=== PATIENT | female | born 1940 | race Caucasian/White ===

== ENCOUNTER 2018-07-06 14:45 | Emergency (ER) | payer MEDICARE ==
[2018-07-06] MEDS ORDERED: ACETAMINOPHEN 325 MG TABLET PO ONE (15:30)
--- NOTE | 2018-07-06 15:32 | ER Document Report ---
ED Headache - General Chief Complaint: Headache >24 hrs old Stated Complaint: FALL/HEAD INJURY Time Seen by Provider: 07/06/18 15:25 Mode of Arrival: Ambulatory Information source: Patient Notes: History of Present Illness Chief Complaint: [head injury] [ ] History obtained from [patient] 78 years old female presents today with a fall at around this morning. When she was coming out of the shower slipped and fell. Sustained an injury to the right parietotemporal region, with the swelling. Currently has mild headache. Denies any loss of consciousness. Denies any neck pain neck stiffness, denies any pain over upper limbs or lower limbs. Denies any injuries or upper limbs or lower limbs. Denies any injury to the chest wall or abdomen. Symptoms began: [immediately prior to arrival] Onset: [sudden] Timing:[ constant] Quality: ["pain"] Intensity: [moderate] Mechanism:[ As above] Location: [ As above] Radiation: [none] Migration: [none] Aggravating factors: [none] Relieving factors: [none] Denies loss of consciousness Denies neck pain Denies numbness Denies weakness Denies change in vision Denies change in hearing Denies additional injuries Review of systems : All other systems negative as reviewed. CONSTITUTIONAL No Fever. EYES No eye pain. ENT No sore throat. CARDIOVASCULAR No chest pain. RESPIRATORY No SOB. GASTROINTESTINAL No abdominal pain, No rectal bleeding. GENITOURINARY No hematuria. MUSCULOSKELETAL No back pain. SKIN No rash. NEUROLOGIC No paralysis. HEMO/LYMPHATIC Patient does not bruise easily. Physical Exam CONSTITUTIONAL Vital signs reviewed, Comfortable, Alert and oriented X 3. HEAD [ ] Nontender, right occipitoparietal region, slight swelling noted which is erythematous and color., Normal cephalic. EYES No discharge from eye, Sclera are not injected, Extraocular muscles intact, Conjunctiva are normal. Pupils equal, round, reactive to light, 2mm bilaterally. ENT Ears normal to inspection, Nose examination normal, Oropharynx normal, Mucous membranes pink, moist, normal in color. NECK No focal bony tenderness, patient is cleared from spinal precautions by Nexus criteria, Normal ROM, trachea midline. RESPIRATORY/CHEST Chest is non-tender, Breath sounds normal, No respiratory distress. CARDIOVASCULAR RRR, Heart sounds normal. ABDOMEN Abdomen is non-tender, No masses, Bowel sounds normal, No distension, No peritoneal signs. BACK No focal bony tenderness, Normal inspection. UPPER EXTREMITY Inspection normal, no focal bony tenderness, no snuff box tenderness, FROM of bilateral shoulders, elbows, wrists, fingers x 5, NVI distally, No cyanosis/ clubbing/edema. LOWER EXTREMITY Inspection normal, no focal bony tenderness, FROM of bilateral hips, knees, ankles, toes x 5, NVI distally, bilateral knees stable without effusion No cyanosis/clubbing/edema, No calf tenderness. NEURO Cranial Nerves intact, Normal speech, Motor exam normal, Sensory exam normal. SKIN Skin is warm and dry, No rash. PSYCHIATRIC Normal affect. TRAVEL OUTSIDE OF THE [place] IN LAST 30 DAYS: No - HPI Notes: Dictated - Related Data Allergies/Adverse Reactions: No Known Allergies Allergy (Unverified 07/06/18 14:46) Past Medical History - Social History Smoking Status: Never Smoker Frequency of alcohol use: Rare Drug Abuse: None Lives with: Family Family History: Reviewed & Not Pertinent Review of Systems - Review of Systems Notes: Dictated Physical Exam - Vital signs Vitals: Temp Pulse Resp BP Pulse Ox 97.8 F 63 16 134/50 H 97 07/06/18 15:15 07/06/18 15:15 07/06/18 15:15 07/06/18 15:15 07/06/18 15:15 - Notes Notes: Dictated Course - Vital Signs Vital signs: Temp Pulse Resp BP Pulse Ox 97.8 F 63 16 134/50 H 97 07/06/18 15:15 07/06/18 15:15 07/06/18 15:15 07/06/18 15:15 07/06/18 15:15 - Diagnostic Test Radiology reviewed: Reports reviewed - CT of the head reported by radiologist as no acute bleeding Discharge - Discharge Clinical Impression: Head injury Qualifiers: Encounter type: initial encounter Qualified Code(s): S09.90XA - Unspecified injury of head, initial encounter Condition: Fair Disposition: HOME, SELF-CARE Instructions: Head Injury Precautions ([facility])
--- NOTE | 2018-07-06 16:06 | RADIOLOGY REPORT (SQ) ---
EXAM DESCRIPTION: CT HEAD WITHOUT COMPLETED DATE/TIME: 07/06/2018 3:52 pm REASON FOR STUDY: Fall and head injury COMPARISON: None. TECHNIQUE: Axial images acquired through the brain without intravenous contrast. Images reviewed wi th bone, brain and subdural windows. Additional sagittal and coronal reconstructions were generated. Images stored on PACS. All CT scanners at this facility use dose modulation, iterative reconstruction, and/or weight based d osing when appropriate to reduce radiation dose to as low as reasonably achievable (ALARA). [facility]: Dose Right [facility]: CareDose [facility]: Dose Right [facility]: Teradose 4D [facility]: [employer] RADIATION DOSE: CT Rad equipment meets quality standard of care and radiation dose reduction techniq ues were employed. CTDIvol: 48.6 mGy. DLP: 953 mGy-cm.mGy. LIMITATIONS: None. FINDINGS: VENTRICLES: Prominent. CEREBRUM: No masses. No hemorrhage. No midline shift. Areas of low density in the white matter mos t likely due to chronic micro-vascular ischemic change. No evidence for acute infarction. CEREBELLUM: No masses. No hemorrhage. No alteration of density. No evidence for acute infarction. EXTRAAXIAL SPACES: Age-related involutional change. No fluid collections. No masses. ORBITS AND GLOBE: No intra- or extraconal masses. Normal contour of globe without masses. CALVARIUM: No fracture. PARANASAL SINUSES: No fluid or mucosal thickening. SOFT TISSUES: No mass or hematoma. OTHER: No other significant finding. IMPRESSION: CHRONIC CHANGES OF ATROPHY AND MICROVASCULAR ISCHEMIA. NO ACUTE PROCESS. EVIDENCE OF ACUTE STROKE: NO. TECHNICAL DOCUMENTATION: JOB ID: [id number] Quality ID # [id number]: Final reports with documentation of one or more dose reduction techniques (e.g., Au tomated exposure control, adjustment of the mA and/or kV according to patient size, use of iterative reconstruction technique) 2010 [employer]- All Rights Reserved Reading location - IP/workstation name: [email or web address]
[2018-07-06 17:21] VITALS: BP 116/53
== END 2018-07-06 17:20 | disposition home or self-care (01) ==
LOC: ER 14:45
DX: S09.90XA Unspecified injury of head, initial encounter (principal); R51 Headache; R22.0 Localized swelling, mass and lump, head; W01.0XXA Fall on same level from slipping, tripping and stumbling without subsequent striking against object, initial encounter; Y93.89 Activity, other specified
CPT/HCPCS: 99283; 70450; A9270

== ENCOUNTER 2019-04-03 07:17 | Emergency (ER) | payer MEDICARE ==
[2019-04-03] MEDS ORDERED: DIPH/PERTUSS(ACELL)/TETANUS VAC/PF 0.5 ML SYR (>=10YO) IM ONE (07:22)
--- NOTE | 2019-04-03 07:24 | ER Document Report ---
ED General - General Stated Complaint: FALL/LIP PAIN Time Seen by Provider: 04/03/19 07:20 Primary Care Provider: CT GAMEZ PA-C [Primary Care Provider] - Follow up as needed Notes: Patient presents with trip and fall averse to be bump hitting her face on right knee on the ground. She did not lose consciousness. She has a mild headache, and minimal neck pain mostly pain is in her lip. Chipped tooth but no loose teeth jaw feels normal. No other pain. The right knee actually does not hurt. Unknown tetanus. TRAVEL OUTSIDE OF THE [place] IN LAST 30 DAYS: No - Related Data Allergies/Adverse Reactions: No Known Allergies Allergy (Unverified 07/06/18 14:46) Past Medical History - Social History Smoking Status: Unknown if Ever Smoked Family History: Reviewed & Not Pertinent - Past Medical History Cardiac Medical History: Reports: Hx Hypercholesterolemia Renal/ Medical History: Denies: Hx Peritoneal Dialysis Psychiatric Medical History: Reports: Hx Depression Past Surgical History: Reports: Hx Orthopedic Surgery - knees Review of Systems - Review of Systems Notes: REVIEW OF SYSTEMS GEN: Denies fever, chills, weight loss ENT: Tooth and lip pain EYES: Denies blurry vision, eye pain, discharge CV: Denies chest pain, palpitations, edema RESP: Denies cough, shortness of breath, wheezing GI: Denies abdominal pain, nausea, vomiting, diarrhea MSK: Denies joint pain/swelling, edema, SKIN: Denies rash, skin lesions LYMPH: Denies swollen glands/lymph nodes NEURO: Denies headache, focal weakness or numbness, dizziness PSYCH: Denies depression, suicidal or homicidal ideation PHYSICAL EXAMINATION General: No acute distress, well-nourished Head: Atraumatic, normocephalic ENT: Versus shallow laceration horizontally across the midline vermilion border of the upper lip contusion on the inner lip but no throughand throughlaceration. There is an Rhodes 1 tooth fracture on the medial surface of the left upper central incisor without bleeding or pulp exposure. Eyes: Conjunctiva normal, pupils equal, lids normal Neck: No JVD, supple, no guarding CVS: Normal rate, regular rhythm, no murmurs Resp: No resp distress, equal and normal breath sounds bilaterally GI: Nondistended, soft, no tenderness to palpation, no rebound or guarding Ext: No deformities, no edema, normal range of motion in upper and lower ext abrasion right knee Without tenderness. Back: No CVA or midline TTP Skin: No rash, warm Lymphatic: No lymphadeopathy noted Neuro: Awake, alert. Face symmetric. GCS 15. Physical Exam - Vital signs Vitals: Temp Pulse Resp BP Pulse Ox 97.4 F 64 16 128/55 H 97 04/03/19 07:40 04/03/19 07:40 04/03/19 07:40 04/03/19 07:40 04/03/19 07:40 Course - Vital Signs Vital signs: Temp Pulse Resp BP Pulse Ox 97.6 F 63 16 118/56 L 97 04/03/19 08:56 04/03/19 08:56 04/03/19 08:56 04/03/19 08:56 04/03/19 08:56 CT is negative. On further inspection there is no laceration. Wounds were treated topically. Patient was discharged stable condition. I have discussed with the patient there likely diagnosis, aftercare plan, follow-up plans and my usual and customary return precautions. They verbalized understanding of this. - Diagnostic Test Radiology reviewed: Image reviewed, Reports reviewed Discharge - Discharge Clinical Impression: Contusion of vermilion border of upper lip Fall from standing Qualifiers: Encounter type: initial encounter Qualified Code(s): W19.XXXA - Unspecified fall, initial encounter Condition: Good Disposition: HOME, SELF-CARE Instructions: Contusion ([facility]) Additional Instructions: If you get swelling or pus drainage from your lip return to the ER. Also return for fever. Also return for uncontrolled nausea vomiting or headache. Your scan today look good and you at most have a mild concussion. Please follow-up with your primary care in 1 week. Referrals: CT GAMEZ PA-C [Primary Care Provider] - Follow up as needed
[2019-04-03] MEDS ORDERED: IBUPROFEN 600 MG TABLET PO ONE (08:09)
[2019-04-03 08:59] VITALS: BP 118/56
--- NOTE | 2019-04-03 09:35 | RADIOLOGY REPORT (SQ) ---
EXAM DESCRIPTION: CT HEAD WITHOUT COMPLETED DATE/TIME: 04/03/2019 8:20 am REASON FOR STUDY: fall head inj COMPARISON: 07/06/2018 TECHNIQUE: Axial images acquired through the brain without intravenous contrast. Images reviewed wi th bone, brain and subdural windows. Additional sagittal and coronal reconstructions were generated. Images stored on PACS. All CT scanners at this facility use dose modulation, iterative reconstruction, and/or weight based d osing when appropriate to reduce radiation dose to as low as reasonably achievable (ALARA). [facility]: Dose Right [facility]: CareDose [facility]: Dose Right [facility]: Teradose 4D [facility]: [employer] RADIATION DOSE: CT Rad equipment meets quality standard of care and radiation dose reduction techniq ues were employed. CTDIvol: 53.2 mGy. DLP: 1017 mGy-cm.mGy. LIMITATIONS: None. FINDINGS: VENTRICLES: Normal for patient age. CEREBRUM: No masses. No hemorrhage. No midline shift. Minimal areas of low density in the white ma tter most likely due to chronic micro-vascular ischemic change. No evidence for acute infarction. CEREBELLUM: No masses. No hemorrhage. No alteration of density. No evidence for acute infarction. EXTRAAXIAL SPACES: Age-related involutional change. No fluid collections. No masses. ORBITS AND GLOBE: No intra- or extraconal masses. Normal contour of globe without masses. CALVARIUM: No fracture. PARANASAL SINUSES: No fluid or mucosal thickening. SOFT TISSUES: No mass or hematoma. OTHER: No other significant finding. IMPRESSION: Stable chronic changes without evidence of acute intracranial process. EVIDENCE OF ACUTE STROKE: NO. TECHNICAL DOCUMENTATION: JOB ID: [id number] Quality ID # 436: Final reports with documentation of one or more dose reduction techniques (e.g., Au tomated exposure control, adjustment of the mA and/or kV according to patient size, use of iterative reconstruction technique) 2010 [employer]- All Rights Reserved Reading location - IP/workstation name: [email or web address]
== END 2019-04-03 08:59 | disposition home or self-care (01) ==
LOC: ER 07:17
DX: S00.531A Contusion of lip, initial encounter (principal); S02.5XXA Fracture of tooth (traumatic), initial encounter for closed fracture; R51 Headache; Y92.009 Unspecified place in unspecified non-institutional (private) residence as the place of occurrence of the external cause; K08.89 Other specified disorders of teeth and supporting structures; M54.2 Cervicalgia; W01.0XXA Fall on same level from slipping, tripping and stumbling without subsequent striking against object, initial encounter
CPT/HCPCS: 99282; 90471; 70450; 90715; A9270